=== PATIENT | female | born 1950 | race Caucasian/White ===

== ENCOUNTER → 2017-06-30 | Day surgery (SDC) | payer MEDICARE, OTHER ==
[~2017-06-30] VITALS: Ht 152.4 cm; Wt 56.7 kg
[~2017-06-30] MED LIST: ACCU-CHEK COMFORT CURVE STRIP VI ONE; ASCO250T32 PO; ASPI-231 PO; AZAT50TA18 PO; BACITRACIN INJ 50000 UNIT VIAL ONE; BIOT10004 PO; BUPIVACAINE 0.25% INJ 50ML VIAL ONE; BUPIVACAINE W/ EPINEPH 0.25% INJ 50ML MDV ONE; CHOL400D PO; CLINDAMYCIN 600MG IV 50 ML IV ONE; CYCL1TAB18 PO; ESOM40CA39 PO; EZET10TA2 PO; GLUC500T48 PO; HYDROmorphone HCL 2 MG/ML VL IV PRN; KETOROLAC TROMETH 30 MG/ML 1ML VIAL IV ONE; LEVO200T46 PO; LIDOCAINE 1% HCL (LOCAL ANESTH.) INJ 20ML MDV ONE; LIDOCAINE W/ EPINEPHRINE 1 % INJ 30ML ONE; LOP2C PO; LOSA50TA6 PO; MEPERIDINE HCL (50 MG/ML) 1 ML VIAL ONE; METOCLOPRAMIDE HCL 5MG/ml INJ 2ml VIAL IV ONE; MIDAZOLAM HCL 1MG/1ML-2 ML VIAL ONE; MULT-775 OR; MULT1TAB61 PO; OMEG120017 PO; ONDANSETRON HCL 4 MG/2 ML VIAL ONE; POTA20TA53 PO; PROPOFOL 10 MG/ML 20 ML IV ONE; SERT-160 PO; SIMV10TA84 PO; SODIUM CHLORIDE LOCK 20 ML ONE; VITA400T4 PO; [UNRECOGNIZED DRUG - CODE] PO; fentaNYL CITRATE 100 MCG/2 ML VL ONE
[2017-06-30 09:41] VITALS: BP 152/70
== END | disposition home or self-care (01) ==
LOC: SUR 06:13
PROVIDERS: ATTEND Orthopaedic Surgery
DX: S63.418A Traumatic rupture of collateral ligament of other finger at metacarpophalangeal and interphalangeal joint, initial encounter (principal); G47.30 Sleep apnea, unspecified; X58.XXXA Exposure to other specified factors, initial encounter; Y99.8 Other external cause status; Y92.89 Other specified places as the place of occurrence of the external cause; Y93.89 Activity, other specified; M25.342 Other instability, left hand; E11.9 Type 2 diabetes mellitus without complications; Z95.1 Presence of aortocoronary bypass graft; Z90.710 Acquired absence of both cervix and uterus
CPT/HCPCS: 26437; 26542; J2001; J2250; J2405; J2704; J3010; J3490